=== PATIENT | male | born 1960 | race Caucasian/White ===

== ENCOUNTER 2018-09-28 01:32 | Observation (INO) | payer OTHER, SELFPAY ==
[2018-09-28] VITALS (12 sets, daily range): BP systolic 99–150; BP diastolic 64–112; PULSE 72–103; RESP 14–20; TEMP 36.4–37.1; O2SAT 90–98; BMI 36.6; BMI 37.0
--- NOTE | 2018-09-28 02:07 | CT_ITS ---
STUDY: CT ABDOMEN AND PELVIS WITH CONTRAST REASON FOR EXAM: Male, 58 years old. Periumbilical pain. Elevated white blood count. RADIATION DOSAGE (If Supplied By Facility): CTDIvol = ( 22.06 ) mGy, DLP = ( 1473.96 ) mGycm TECHNIQUE: Transaxial images were obtained from the dome of the diaphragm to the symphysis pubis without oral contrast. Isovue 300 100ML IV was administered. Sagittal and coronal images were reconstructed. Individualized dose optimization techniques were used for this CT. COMPARISON: None. FINDINGS: The visualized lung bases are unremarkable. The visualized portions of the heart are within normal limits. Normal liver. Normal gallbladder and extrahepatic biliary system. Normal spleen. Normal pancreas. Normal bilateral adrenal glands. Bilateral simple renal cysts largest in the inferior pole right kidney measuring 4.3 cm. Normal visualized stomach. Umbilical hernia containing fluid-filled loops of small bowel. Fluid-filled loops of small bowel somewhat dilated 2.9 cm compatible with a mid/distal small bowel obstruction coronal image 42. Transition zone is at the level of the umbilical hernia axial image 88. There is no wall thickening of the loops of bowel to suggest strangulation. Normal colon. The appendix is visualized and appears normal. Normal abdominal aorta. Normal inferior vena cava. Normal retroperitoneum. No intra-abdominal free air. Normal urinary bladder. Prostate gland not enlarged. Normal abdominal wall. L4-[address]/Abdomen/Pelvis W IV Cont ONLY IMPRESSION: Small bowel obstruction secondary to an incarcerated umbilical hernia. Recommend surgical consult. Bilateral renal cysts. Electronically Signed: Liam Moya MD at 3:42 EDT , Service support ,
--- NOTE | 2018-09-28 02:10 | ED.DCSUM_ITS ---
- ER Visit Summary Date of Service: 09/28/18 Chief Complaint: Mid and left lower quadrant abdominal pain History of Present Illness: The patient is a 58 M denies any significant past medical or surgical history he does have a known umbilical hernia. Patient states Friday morning he started having left lower quadrant and periumbilical abdominal pain. Progressively worsening. Now with nausea vomiting. He has had bowel movements in the last 12 hours. He denies any fever. No dysuria. No abdominal trauma. Physical Examination: Middle-aged male. Vital signs are stable. He is afebrile. He does not look septic or toxic. Complaining of abdominal pain. H EENT exam unremarkable other than he is actively vomiting. Neck nontender. Lungs clear to auscultation bilaterally. Heart regular rhythm rate about there is no murmur. Abdomen slightly distended. Tender in the left lower quadrant. He does have a umbilical hernia. Mildly tender. Both the right upper right lower quadrants are unremarkable. He does have bowel sounds. He is moving all 4 extremities. There is no edema. Neurologically is awake and alert. Test Results: CBC White count is elevated 12.6. Hemoglobin 16. Electrolytes normal normal creatinine and gap. Liver enzymes normal. Lipase normal at 242. UA negative. CAT scan abdomen pelvis shows an obvious umbilical with what looks like an early small bowel obstruction with dilated loops of bowel. I am awaiting the formal radiology interpretation but this does fit his clinical picture. Emergency Department Course and Treatment: A liter normal saline. Zofran for nausea and morphine for pain. Screening labs and a CT will be obtained. Treatment Plan: Repeat exam patient is doing better after the Zofran and morphine. But he still is tender on exam to his abdomen. He seems distended. And I tried to reduce his umbilical hernia and he has had too much pain and I could not reduce it. Clinically I think he has an incarcerated umbilical hernia with an early small bowel obstruction. I discussed this with Dr. Tyler Ling on-call for general surgery and he will be and evaluate the patient most likely taken to the operating room for reduction of umbilical hernia and repair. Disposition: Admit and taken to the OR Impression: Acute abdominal pain acute incarcerated umbilical hernia with small bowel obstruction This note was generated with [employer] dictation software. It may contain incorrect words, spelling, and punctuation that were not noted in review of the chart prior to signing ED Disposition - Plan for ED Patient: Referrals: Care Physician,No Primary [Primary Care Provider] -
[2018-09-28 02:17] LABS: Absolute Lymphocyte Count 4.09 X10^3/ul (0.83-4.51); Absolute Neutrophil Count 7.7 X10^3/uL (2.0-7.7); Basophil# 0.04 X10^3/uL; Basophil% 0.3 % (0-1); Eosinophil# 0.05 X10^3/uL; Eosinophils% 0.4 % (0-5); Hematocrit 48.6 % (40-54); Hemoglobin 16.5 g/dl (13.0-16.5); Lymphocyte # 4.09 X10^3/ul (4.0); Lymphocyte % 32.4 % (19-41); Mean Corpuscular Hgb 30.2 pg (27.0-32.0); Mean Corpuscular Volume 88.8 fL (80-94); Mean Platelet Vol. 9.6 fl (6.2-12.0); Monocyte# 0.74 X10^3/uL; Monocyte% 5.9 % (0-10); Neutrophil # 7.69 X10^3/uL (2.7-7.7); Neutrophil % 60.8 % (47-70); POSITIVE COUNT NO; POSITIVE DIFFERENTIAL NO; POSITIVE MORPHOLOGY NO; Platelet Count 309 K/mm3 (150-450); RBC Distribution Width CV 13.1 % (11.6-14.6); RBC Distribution Width SD 42.9 fl (35.1-43.9); Red Blood Count 5.47 M/mm3 (4.6-6.2); White Blood Count 12.6 K/mm3 (4.4-11.0)
[2018-09-28] MEDS: Morphine 4 MG/ML Syringe 6 MG IV (02:18)
[2018-09-28] MEDS: 0.9% Normal Saline 1,000 ML 1000 ML IV (02:19)
[2018-09-28] MEDS: Ondansetron 4 MG/2 ML Vial IV (02:19)
[2018-09-28 02:27] LABS: Red Blood Cells-Urine 0 SEEN /hpf (0-5)
[2018-09-28 02:30] LABS: AST(SGOT) 27 U/L (15-37); Alanine Aminotransfer ALT/SGPT 42 U/L (16-61); Albumin, Serum 4.6 g/dL (3.2-5.0); Alkaline Phosphatase 87 U/L (45-117); Anion Gap 6 (5-15); BUN 17 mg/dL (7-18); BUN/Creat Ratio 14.3 RATIO (10-20); Bilirubin, Direct 0.13 mg/dL (0.00-0.30); Calcium,Total 9.5 mg/dL (8.5-10.1); Chloride 106 mmol/L (98-107); Creatinine, Serum 1.19 mg/dL (0.70-1.30); EST Glomerular Filtration Rate 67 mL/min (>60); Est Glom Filt Rate - Afr Amer 81 mL/min (>60); Estimated Creatinine Clearance 70.72 ml/min; Globulin 3.6 g/dL (2.2-4.2); Glucose 85 mg/dL (74-106); Lipase 242 U/L (73-393); Potassium 3.5 mmol/L (3.5-5.1); Protein, Total 8.2 g/dL (6.4-8.2); Sodium Level 138 mmol/L (136-145)
[2018-09-28 02:34] LABS: Color, Urine Yellow (Yellow); Glucose, Dipstick Normal (Normal); Ketone-Dipstick 5 mg/dl (Negative); Leukocyte Esterase-Dipstick 25 /ul (Negative); Nitrite-Dipstick Negative (Negative); Occult Blood-Urine Negative /ul (Negative); Protein-Dipstick 15 mg/dl (Negative); Urine Bilirubin Dipstick Negative (Negative); Urine Clarity Clear (Clear); Urine Urobilinogen Normal (Normal)
[2018-09-28 03:01] LABS: Bacteria RARE /hpf (None Seen); Mucous, Urine 1+ /hpf (<or=2+); Squamous Epithelial Cells - UA 0-5 SEEN /hpf (0-5); White Blood Cells 0-5 SEEN /hpf (0-5)
[2018-09-28] MEDS: Morphine 4 MG/ML Syringe IV (03:26)
--- NOTE | 2018-09-28 04:25 | HP.PCM_ITS ---
History of Present Illness Date of Admission: 09/28/18 Chief Complaint: Acute appendicitis The patient is a 58 year old M with a know history of a reducible umbilical hernia. He now notes pain, swelling and redness for the past 24 hours. He ate dinner and felt nauseated. He presented to [facility] ER. CT scan demonstrated a loop of small bowel in the umbilical hernia with fluid around the bowel. This was attempted to be reduced by the ER physician - unsuccessful. The patient vomited after this attempt. WBC count is elevated with left shift. Past Medical History Allergies No Known Allergies Allergy (Verified 09/28/18 01:32) Home Medications: Ambulatory Orders Medication Instructions Recorded No Known/Unobtainable [No Known 05/05/16 Home Medications] Surgical History: no surgical history Smoking Status: Current every day smoker - denied to me Review of Systems Constitutional: Denies: Chills, Fever, Weight Change HEENT: Denies: Head Aches, Sinus Congestion, Sinus Drainage Cardiovascular: Denies: Chest Pain, Palpitations Respiratory: Denies: Cough, Shortness of breath at rest, Sputum production Gastrointestinal: Reports: Abdominal Pain, Nausea. Denies: Vomiting Genitourinary: Denies: Dysuria Musculoskeletal: Denies: Joint Pain, Joint Tenderness Skin: Denies: Rash, Wounds Neurological: Denies: Numbness, Tingling, Focal weakness Psychiatric: Denies: Anxiety, Depression, Homicidal Ideations, Suicidal Ideations Hematologic/ Lymphatic: Denies: Easy Bruising, Easy Bleeding VTE Information - Inpt Only VTE Present on Admission: No VTE Mechan Device Prophylaxis: SCD's VTE Pharm Prophylaxis ordered?: No - Physical Exam General: Alert, Oriented x3, Cooperative HEENT: Atraumatic, PERRLA, EOMI, Normocephalic Neck: Supple, No JVD, Negative Carotid Bruits Lungs: Clear to auscultation, Normal air movement Cardiovascular: Regular rate, No murmurs Abdomen: Bowel Sounds Present, Soft, Tender - periumbilically - erythema at umbilicus - non reducible umbilical hernia Extremities: No edema, Capillary Refill Less than 3 Seconds Skin: No rashes, No breakdown Musculoskeletal: No Tenderness to Palpation of Joints or Extremities Neurological: Cranial nerves II-XII grossly intact Psych/Mental Status: Normal Affect, Appropriate Vital Signs Temp Pulse Resp BP Pulse Ox 98.3 F 86 20 H 120/91 H 95 09/28/18 03:35 09/28/18 03:35 09/28/18 03:35 09/28/18 03:35 09/28/18 03:35 Oxygen Delivery Method Room Air Weight: 115.666 kg Body Mass Index (BMI) 36.6 Laboratory Tests Past 24 Hrs 09/28/18 09/28/18 09/28/18 01:40 01:40 02:20 WBC 12.6 H RBC 5.47 Hgb 16.5 Hct 48.6 MCV 88.8 MCH 30.2 MCHC 34.0 RDW 13.1 RDW Differential 42.9 Plt Count 309 MPV 9.6 Immature Gran % (Auto) 0.200 Neut % (Auto) 60.8 Lymph % (Auto) 32.4 Hardy % (Auto) 5.9 Eos % (Auto) 0.4 Baso % (Auto) 0.3 Absolute Neuts (auto) 7.7 Absolute Lymphs (auto) 4.09 Total Counted Not Reportable Sodium 138 Potassium 3.5 Chloride 106 Carbon Dioxide 26.0 Anion Gap 6 BUN 17 Creatinine 1.19 Estim Creat Clear Calc 70.72 Est GFR (MDRD) Af Amer 81 Est GFR (MDRD) Non-Af 67 BUN/Creatinine Ratio 14.3 Glucose 85 Calcium 9.5 Total Bilirubin 0.60 Direct Bilirubin 0.13 AST 27 ALT 42 Alkaline Phosphatase 87 Total Protein 8.2 Albumin 4.6 Globulin 3.6 Lipase 242 Urine Color Yellow Urine Clarity Clear Urine pH 5.0 Ur Specific Holland 1.020 Urine Protein 15 H Urine Glucose (UA) Normal Urine Ketones 5 H Urine Occult Blood Negative Urine Nitrite Negative Urine Bilirubin Negative Urine Urobilinogen Normal Ur Leukocyte Esterase 25 H Urine RBC 0 SEEN Urine WBC 0-5 SEEN Ur Squamous Epith Cells 0-5 SEEN Urine Bacteria RARE Urine Mucus 1+ Assessment/Plan Strangulated umbilical hernia I plan for umbilical hernia repair - reduction of strangulated bowel, possible bowel resection. The patient understands the risks, benefits, possible complications and the possible need for a bowel resection. He consents to the procedure. He is given Clindamycin and SCDs are placed.
--- NOTE | 2018-09-28 04:45 | HERN_PTH ---
PATIENT: AYAD CALLE LOC: [facility] U#:[id number] AGE/SX: 58/M ROOM: KS320 RE09/28/[address]: Dr. Royal Ling MD : 1960 BED: 1 DIS: 09/30/2018 SPEC #: [id number] RECD: 09/28/18 07:51 STATUS: SAMANTHA REQ #: [id number] JUANITO: 09/28/18 04:[address]: Royal Ling DEPT: SURGICAL PATHOLOGY RECD BY: Jazlyn Whatley ENTERED: 09/28/18 09:16 SP TYPE: Hernia OTHR DR: No Primary Care Phys Tissues: HERNIA Procedures: Surgery Specimen Level II HEADER OPERATION: Umbilical hernia repair PRE-OP DIAGNOSIS: Incarcerated umbilical hernia TISSUE SUBMITTED: Hernia sac MICROSCOPIC DIAGNOSIS Umbilical soft tissue, excision: Consistent with hernia sac and vascular ectasia. AM:sadaf 09/29/18 MICROSCOPIC DESCRIPTION Slides are reviewed. GROSS DESCRIPTION Received in fixative is one container labeled with the patient's name and designated hernia sac. The specimen consists of an irregular piece of barrientos soft tissue measuring 8 x 5 x 2 cm. No mass lesion is identified. Supervisor Testing sections are submitted in one cassette. / SJ:sadaf 09/28/18 TC:5 CPT: 51525
[2018-09-28] MEDS: Bupivacaine Mpf 0.5% 30 ML VIAL (05:50)
--- NOTE | 2018-09-28 06:01 | OP.PCM_ITS ---
Report of Operation Date of Procedure: 09/28/18 Pre-Operative Diagnosis: incarcerated, r/o strangulated umbilical hernia Post-Operative Diagnosis: incarcerated, spontaneously umbilical hernia Surgery/Procedure Performed:: repair in incarcerated umbilical hernia zone maintenance technician: None Type of Anesthesia:: General Anesthesiologist: Adrien Moffett - [id number] Specimen's removed: hernia sac Estimated Blood Loss (mL): 50 Fluids Replaced: 300 Description of Procedure: The patient was brought to the operating suite. Sign in was performed verifying patient, site, procedure, position, and DVT prophylaxis with SCDs. Patient received 900 milligrams of clindamycin as antibiotic prophylaxis given the possibility of bowel resection.. Following induction of general anesthetic, the patient?s abdomen was prepped and draped in the usual fashion. Timeout was performed verifying patient, site, position. the patient's umbilicus with the incarcerated and concerned for strangulated umbilical hernia with a loop of bowel noted on CT scan seemed softer after abdominal prepping and induction of general anesthesia. Local anesthetic was injected . A midline including umbilicalcurvilinear incision was made and dissection carried down to the umbilical root fascia. Dissection was continued around the umbilical root and the umbilical skin was dissected off the hernia sac. the hernia sac was noted to be partially distended with what appeared to be darker fluid and there was edema of the tissues around the sac. As the sac was being mobilized off the subcutaneous fatty tissues, the bowel returned to stay into the intra-abdominal space. The hernia sac was then opened. There was noted to be serous fluid which appeared nonpurulent within the hernia sac. The hernia sac was then dissected and amputated at the level of the fascial margin and the fascial margin cleaned. Attempting to look within the abdominal cavity through the proximally 2 similar defect yielded no suspicious-looking bowel. Attempts to randomly express bowel through the incision also yielded no suspicious-looking bowel segments but also did not specifically demonstrate was felt to be the likely incarcerated bowel segment that reduced.. given the degree of inflammation and the fact that this had been emergency georgina ever, the defect was closed with 4 0 Prolene [id number] sutures and knots of which were buried.. Subcutaneous fat was loosely reapproximated with interrupted 3-0 Vicryl suture. Skin was closed Agustín. The patient was brought to recovery room in stable condition - with plans for serial laboratory studies and lactic acid to evaluate for the possibility of ischemic bowel even though this did reduce spontaneously - Admit VTE Documentation VTE Present on Admission: No VTE Mechan Device Prophylaxis: SCD's VTE Pharm Prophylaxis ordered?: No
[2018-09-28 06:45] LABS: Absolute Lymphocyte Count 1.14 X10^3/ul (0.83-4.51); Absolute Neutrophil Count 9.9 X10^3/uL (2.0-7.7); Basophil# 0.01 X10^3/uL; Basophil% 0.1 % (0-1); Hematocrit 46.2 % (40-54); Hemoglobin 14.9 g/dl (13.0-16.5); Lymphocyte # 1.14 X10^3/ul (4.0); Lymphocyte % 9.8 % (19-41); Mean Corp Hgb Conc 32.3 g/gl (32-36); Mean Corpuscular Hgb 29.3 pg (27.0-32.0); Mean Corpuscular Volume 90.8 fL (80-94); Mean Platelet Vol. 9.6 fl (6.2-12.0); Monocyte# 0.47 X10^3/uL; Monocyte% 4.1 % (0-10); Neutrophil # 9.94 X10^3/uL (2.7-7.7); Neutrophil % 85.7 % (47-70); Platelet Count 267 K/mm3 (150-450); RBC Distribution Width CV 13.3 % (11.6-14.6); RBC Distribution Width SD 43.3 fl (35.1-43.9); Red Blood Count 5.09 M/mm3 (4.6-6.2); White Blood Count 11.6 K/mm3 (4.4-11.0)
[2018-09-28 06:46] LABS: POSITIVE COUNT NO; POSITIVE DIFFERENTIAL NO; POSITIVE MORPHOLOGY NO
[2018-09-28] MEDS: Morphine 2 MG/ML Syringe IV ×4 (07:54→21:09)
[2018-09-28 10:28] LABS: Reflex Lactate? Y
[2018-09-28 11:17] LABS: Lactic Acid 1.1 mmol/L (0.4-2.0)
[2018-09-28] MEDS: Lactated Ringers 1,000 ML 100 ML IV ×2 (11:34→21:10)
--- NOTE | 2018-09-28 11:42 | NURSING ---
up to bathroom w/minimal assist. voiding. medicated for pain after activity. kpad to abd
[2018-09-28 13:17] LABS: Absolute Lymphocyte Count 1.58 X10^3/ul (0.83-4.51); Absolute Neutrophil Count 6.8 X10^3/uL (2.0-7.7); Basophil# 0.01 X10^3/uL; Basophil% 0.1 % (0-1); Eosinophil# 0.03 X10^3/uL; Eosinophils% 0.3 % (0-5); Hematocrit 42.1 % (40-54); Hemoglobin 13.7 g/dl (13.0-16.5); Lymphocyte # 1.58 X10^3/ul (4.0); Lymphocyte % 17.5 % (19-41); Mean Corp Hgb Conc 32.5 g/gl (32-36); Mean Corpuscular Hgb 29.2 pg (27.0-32.0); Mean Corpuscular Volume 89.8 fL (80-94); Mean Platelet Vol. 9.2 fl (6.2-12.0); Monocyte# 0.54 X10^3/uL; Neutrophil # 6.83 X10^3/uL (2.7-7.7); Neutrophil % 75.9 % (47-70); POSITIVE COUNT NO; POSITIVE DIFFERENTIAL NO; POSITIVE MORPHOLOGY NO; Platelet Count 238 K/mm3 (150-450); RBC Distribution Width CV 13.3 % (11.6-14.6); RBC Distribution Width SD 43.1 fl (35.1-43.9); Red Blood Count 4.69 M/mm3 (4.6-6.2)
[2018-09-28] MEDS: 0.9% NaCl Peripheral Flush Adult/Peds IV (18:39)
[2018-09-29 01:55] VITALS: BP 97/58; PULSE 76; RESP 16; TEMP 36.8; O2SAT 96
[2018-09-29] MEDS: Morphine 2 MG/ML Syringe IV ×4 (04:15→20:44)
[2018-09-29 06:23] LABS: Absolute Lymphocyte Count 2.27 X10^3/ul (0.83-4.51); Absolute Neutrophil Count 5.6 X10^3/uL (2.0-7.7); Basophil# 0.01 X10^3/uL; Basophil% 0.1 % (0-1); Eosinophil# 0.09 X10^3/uL; Hematocrit 42.4 % (40-54); Hemoglobin 13.2 g/dl (13.0-16.5); Lymphocyte # 2.27 X10^3/ul (4.0); Lymphocyte % 26.2 % (19-41); Mean Corp Hgb Conc 31.1 g/gl (32-36); Mean Corpuscular Hgb 28.9 pg (27.0-32.0); Mean Platelet Vol. 9.6 fl (6.2-12.0); Monocyte% 8.1 % (0-10); Neutrophil # 5.57 X10^3/uL (2.7-7.7); Neutrophil % 64.5 % (47-70); Platelet Count 245 K/mm3 (150-450); RBC Distribution Width CV 13.2 % (11.6-14.6); RBC Distribution Width SD 43.4 fl (35.1-43.9); Red Blood Count 4.56 M/mm3 (4.6-6.2); White Blood Count 8.7 K/mm3 (4.4-11.0)
[2018-09-29 06:29] LABS: POSITIVE COUNT NO; POSITIVE DIFFERENTIAL NO; POSITIVE MORPHOLOGY NO
[2018-09-29] MEDS: Lactated Ringers 1,000 ML 100 ML IV ×2 (06:39→16:43)
[2018-09-29 06:53] LABS: Anion Gap 7 (5-15); BUN 15 mg/dL (7-18); BUN/Creat Ratio 13.6 RATIO (10-20); Calcium,Total 8.1 mg/dL (8.5-10.1); Chloride 108 mmol/L (98-107); EST Glomerular Filtration Rate 73 mL/min (>60); Est Glom Filt Rate - Afr Amer 89 mL/min (>60); Glucose 76 mg/dL (74-106); Potassium 3.9 mmol/L (3.5-5.1); Sodium Level 141 mmol/L (136-145)
[2018-09-29 10:00] VITALS: BP 116/84; PULSE 73; RESP 14; TEMP 36.9; O2SAT 95
[2018-09-29] MEDS: Morphine 4 MG/ML Syringe IV ×3 (13:58→23:32)
[2018-09-29] MEDS: 0.9% NaCl Peripheral Flush Adult/Peds IV ×4 (13:59→23:33)
[2018-09-29 15:00] VITALS: BP 128/82; PULSE 72; RESP 16; TEMP 36.9; O2SAT 95
[2018-09-29] MEDS: BENZOCAINE/MENTHOL 1 LOZENGE MUCOUS MEM (16:41)
[2018-09-29] MEDS: Ensure Clear 120 ML Liquid PO (16:54)
[2018-09-29 20:44] VITALS: BP 126/84; PULSE 77; RESP 18; TEMP 37.3; O2SAT 97
--- NOTE | 2018-09-29 23:10 | PN.SURG_ITS ---
Subjective: no flatus, incisional pain - Physical Exam General: Alert, Oriented x3, Cooperative Lungs: Clear to auscultation, Normal air movement Cardiovascular: Regular rate, No murmurs Abdomen: Soft, Hyperactive Bowel Sounds, Tender - a long incision Vital Signs Temp Pulse Resp BP Pulse Ox 99.1 F 77 18 126/84 H 97 09/29/18 20:44 09/29/18 20:44 09/29/18 20:44 09/29/18 20:44 09/29/18 20:44 Oxygen Flow Rate (L/min) 2 Oxygen Delivery Method Room Air Weight: 117.14 kg Body Mass Index (BMI) 37.0 Intake and Output for Last 24 Hours 09/27/18 09/28/18 09/29/18 23:59 23:59 23:59 Intake Total 857 / 857 3040 / 3040 Balance 857 / 857 3040 / 3040 Laboratory Tests Past 24 Hrs 09/29/18 09/29/18 05:52 05:52 WBC 8.7 RBC 4.56 L Hgb 13.2 Hct 42.4 MCV 93.0 MCH 28.9 MCHC 31.1 L RDW 13.2 RDW Differential 43.4 Plt Count 245 MPV 9.6 Immature Gran % (Auto) 0.100 Neut % (Auto) 64.5 Lymph % (Auto) 26.2 Antelope % (Auto) 8.1 Eos % (Auto) 1.0 Baso % (Auto) 0.1 Absolute Neuts (auto) 5.6 Absolute Lymphs (auto) 2.27 Total Counted Not Reportable Sodium 141 Potassium 3.9 Chloride 108 H Carbon Dioxide 26.0 Anion Gap 7 BUN 15 Creatinine 1.10 Estim Creat Clear Calc 76.50 Est GFR (MDRD) Af Amer 89 Est GFR (MDRD) Non-Af 73 BUN/Creatinine Ratio 13.6 Glucose 76 Calcium 8.1 L Medical Necessity - Tobacco Use Smoking Status: Current every day smoker - denied to me Assessment/Plan Strangulated umbilical hernia - POD # 1 status post repair of incarcerated umbilical hernia. the patient had spontaneous reduction of the bowel wall mobilizing the hernia sac. The hernia sac was opened and amputated. The loop of bowel stuck in the umbilicus was not able to visualize it smaller defect. The patient had improving lactic acid and white blood cell counts and was felt to therefore have noncompromised bowel clinically and by exam. He does have a degree of hypoactive bowel sounds and not passed flatus. Until the patient has re turn/improvement of bowel function would maintain the patient on sips and chips. He is instructed to utilize his incentive spirometry and ambulate.
[2018-09-29] MEDS: Ibuprofen 400 MG Tablet PO (23:32)
[2018-09-30] VITALS (8 sets, daily range): BP systolic 110–131; BP diastolic 69–89; PULSE 61–74; RESP 14–18; TEMP 36.4–37.2; O2SAT 93–97
[2018-09-30] MEDS: Lactated Ringers 1,000 ML 100 ML IV (03:30)
[2018-09-30] MEDS: Ensure Clear 120 ML Liquid PO ×3 (08:47→16:30)
--- NOTE | 2018-09-30 10:59 | DCINST_ITS ---
Discharge Diet: Light diet - advance as tolerated Discharge Activity: Return to Normal Activity, May Drive - when you are no longer taking narcotic pain medications., May Shower - with the bandage in place 1-2 days after surgery. Lifting Restrictions: 20 pounds for 8 weeks. Additional Activity Instructions:: Climbing stairs is fine, walking is encouraged. Sitting in bed may be uncomfortable. Sitting up using your lateral muscles (sitting up sideways) is usually more comfortable. Do not drive, work heavy equipment of sign legal documents for 24 hours. If your hernia repair was an ingunial repair, you may have scrotal swelling, an ice pack and/or athletic support can provide more comfort. Pain medications may cause nausea, you should typically eat light foods as you take your pain medications. Pain medications may also cause constipation. If you have difficulty with this, discuss with your doctor. Call your doctor if your incision/area has: Continuous Slow Oozing, Sudden Increased Bleeding, Increased Pain/ Swelling, Increased Redness, Foul Smelling Discharge Call your doctor if you observe: Fever of 101 or Higher Suture Line Care: Avoid Pulling/Pushing, Avoid Pinching/Bending Additional Dressing/Incision Instructions:: Leave the operative bandage on for 2-3 days. When you remove the bandage, leave the steri-strips on place until your follow up appointment or they fall off. Allergies/Adverse Reactions: Allergies No Known Allergies Allergy (Verified 09/28/18 01:32) Medications to take at Discharge Ensure Clear 120 ml PO TIDCM liquid 09/30/18 Ibuprofen [Motrin] 400 mg PO Q4H PRN PRN tablet 09/30/18 Oxycodone [Oxyir] 5 - 10 mg PO Q4H PRN PRN 7 Days #12 tab 09/30/18 The following prescriptions were given: Oxycodone [Oxyir] 5 - 10 mg PO Q4H PRN PRN 7 Days #12 tab PRN Reason: Severe Pain (6-10/10) Primary Care Physician: Care Physician,No Primary [Primary Care Provider] - Test Results: Test results from this visit will be discussed in further detail at your follow- up appointment, if applicable. Please Follow Up With: Royal Ling MD - [phone] When: Plan to have a follow up appointment in 7 days. Call to schedule.
--- NOTE | 2018-09-30 11:00 | PCM.DC.SUM ---
Discharge Date and Diagnosis Date of Admission: 09/28/18 Date of Discharge: 09/30/18 - Primary Discharge Diagnosis incarcerated umbilical hernia Hospital Course and Treatment Operations: herniorrhaphy Summary of Care Provided: The patient is a 58 year old M with a known long-standing umbilical hernia now with an incarcerated nonreducible umbilical hernia with CT scan demonstrating a loop of small bowel approximately bowel obstruction. The patient was urgently brought to the operating suite and underwent emergency umbilical hernia repair. The small bowel did reduce spontaneously as the hernia sac was being dissected. The actual loop of bowel was not visualized intraoperatively. Postoperatively the patient had normalization of his lactic acid and WBC count. He had slightly delayed return of bowel function likely due to small bowel inflammation. The patient return of bowel function was tolerating a diet and passed flatus and was discharged home on postoperative day 2. - Physical Exam General: Alert Neck: Supple, No JVD, Negative Carotid Bruits Lungs: Clear to auscultation, Normal air movement Cardiovascular: Regular rate, No murmurs Abdomen: Bowel Sounds Present, Soft, Non Tender - except mild incisional tenderness Vital Signs Temp Pulse Resp BP Pulse Ox 98.4 F 61 18 131/83 H 94 09/30/18 09:02 09/30/18 09:02 09/30/18 09:02 09/30/18 09:02 09/30/18 09:02 Oxygen Flow Rate (L/min) 2 Oxygen Delivery Method Room Air Weight: 117.14 kg Body Mass Index (BMI) 37.0 Intake and Output for Last 24 Hours 09/28/18 09/29/18 09/30/18 23:59 23:59 23:59 Intake Total 857 / 857 4485 / 4485 1040 / 1040 Balance 857 / 857 4485 / 4485 1040 / 1040 Discharge Diet: Light diet - advance as tolerated Discharge Activity: Return to Normal Activity, May Drive - when you are no longer taking narcotic pain medications., May Shower - with the bandage in place 1-2 days after surgery. Additional Activity Instructions:: Climbing stairs is fine, walking is encouraged. Sitting in bed may be uncomfortable. Sitting up using your lateral muscles (sitting up sideways) is usually more comfortable. Do not drive, work heavy equipment of sign legal documents for 24 hours. If your hernia repair was an ingunial repair, you may have scrotal swelling, an ice pack and/or athletic support can provide more comfort. Pain medications may cause nausea, you should typically eat light foods as you take your pain medications. Pain medications may also cause constipation. If you have difficulty with this, discuss with your doctor. Call your doctor if your incision/area has: Continuous Slow Oozing, Sudden Increased Bleeding, Increased Pain/ Swelling, Increased Redness, Foul Smelling Discharge Call your doctor if you observe: Fever of 101 or Higher Suture Line Care: Avoid Pulling/Pushing, Avoid Pinching/Bending Additional Dressing/Incision Instructions:: Leave the operative bandage on for 2-3 days. When you remove the bandage, leave the steri-strips on place until your follow up appointment or they fall off. Home Medications: Medications to take at Discharge Ensure Clear 120 ml PO TIDCM liquid 09/30/18 Ibuprofen [Motrin] 400 mg PO Q4H PRN PRN tablet 09/30/18 Oxycodone [Oxyir] 5 - 10 mg PO Q4H PRN PRN 7 Days #12 tab 09/30/18 Following Prescrptions Were Given to Patient: Oxycodone [Oxyir] 5 - 10 mg PO Q4H PRN PRN 7 Days #12 tab PRN Reason: Severe Pain (6-04/22) Primary Care Physician: Care Physician,No Primary [Primary Care Provider] - Please Follow Up With: Royal Ling MD - [phone] When: Plan to have a follow up appointment in 7 days. Call to schedule. Medical Necessity - Tobacco Use Smoking Status: Current every day smoker - denied to me Meaningful Use Info Meaningful Use Diagnoses (Choose all that apply): None applicable
--- NOTE | 2018-09-30 14:29 | NURSING ---
student nurses charting reviewed and used for educational learning purposes. madeline
--- NOTE | 2018-09-30 18:29 | NURSING ---
Patient came to desk. States called and would like patient to have a binder prior to DC. Will page Dr Ling
== END 2018-09-30 21:48 | disposition home or self-care (01) ==
LOC: ED 02:39 → SDC 04:41 → MS3 07:51 → SDC 09-29 13:47
PROVIDERS: Admitting Provider Surgery; Emergency Provider Emergency Medicine; Referring Provider Surgery; Visit Provider Surgery
PROC: (CPT 49000; principal; 2018-09-28 04:45)
DX: K42.0 Umbilical hernia with obstruction, without gangrene (principal); I10 Essential (primary) hypertension; Z87.891 Personal history of nicotine dependence
CPT/HCPCS: 49587; 36415; 74177; 80048; 80076; 81001; 83605; 83690; 85025; 88302; 96361; 96365; 96375; 96376; 99218; 99281; J7030; J7120; Q9967; A4216; G0378; J2405